=== PATIENT | male | born 1960 | race African-American/Black ===

== ENCOUNTER 2022-07-16 05:04 | Day surgery (SDC) | payer BC, OTHER ==
[2022-06-30 18:33] VITALS: BMI 26.4
[2022-07-16] MEDS ORDERED: MIDAZOLAM HCL 2 MG/2 ML SINGLE DOSE VIAL ONE (09:02)
[2022-07-16] MEDS ORDERED: DEXAMETHASONE SOD PHOSPHATE 4 MG/1 ML VIAL ONE (09:02)
[2022-07-16] MEDS ORDERED: ONDANSETRON 4 MG/2 ML VIAL ONE (09:02)
[2022-07-16] MEDS ORDERED: PROPOFOL 20 ML ONE (09:02)
[2022-07-16] MEDS ORDERED: BUPIVACAINE HCL/PF 0.25% (2.5MG/ML) 10 ML VIAL ONE (09:22)
[2022-07-16] MEDS ORDERED: LIDOCAINE 1%/EPI 1:100000 (20 ML MULTI DOSE VIAL) ONE (09:22)
[2022-07-16] MEDS ORDERED: LIDOCAINE 1%/EPI 1:100000 (20 ML MULTI DOSE VIAL) INF ONE (09:52)
[2022-07-16] MEDS ORDERED: BUPIVACAINE HCL/PF 0.25% (2.5MG/ML) 10 ML VIAL IJ ONE (09:52)
[2022-07-16 11:32] VITALS: RESP 18
[2022-07-16] MEDS ORDERED: oxyCODONE HCL 5 MG TABLET PO PRN (11:40)
[2022-07-16] MEDS ORDERED: ONDANSETRON 4 MG/2 ML VIAL IVPUSH PRN (11:40)
[2022-07-16] MEDS ORDERED: LACTATED RINGERS SOLUTION 1,000 ML IV SCH (11:45)
[2022-07-16 16:21] VITALS: BP 138/84; PULSE 60; TEMP 97.6
== END 2022-07-16 12:30 | disposition home or self-care (01) ==
LOC: JASU-SURG 05:04
PROVIDERS: ATTEND Orthopaedic Surgery
PROC: 0SBC4ZZ Excision of Right Knee Joint, Percutaneous Endoscopic Approach (ICD-10-PCS; principal; 2022-07-16 08:45)
DX: M23.91 Unspecified internal derangement of right knee (principal); S83.241A Other tear of medial meniscus, current injury, right knee, initial encounter; X58.XXXA Exposure to other specified factors, initial encounter; Y93.9 Activity, unspecified; Y92.89 Other specified places as the place of occurrence of the external cause; Y99.9 Unspecified external cause status
CPT/HCPCS: 94760

== ENCOUNTER 2022-09-17 04:18 | Day surgery (SDC) | payer OTHER ==
[2022-09-15 09:30] VITALS: BMI 26.4
[2022-09-17] MEDS ORDERED: BUPIVACAINE HCL/PF 0.5% (5MG/ML) 10 ML VIAL ONE (07:23)
[2022-09-17] MEDS ORDERED: LIDOCAINE HCL/PF 2% SDV 5ML VIAL ONE (09:05)
[2022-09-17] MEDS ORDERED: DEXAMETHASONE SOD PHOSPHATE 4 MG/1 ML VIAL ONE (09:05)
[2022-09-17] MEDS ORDERED: PROPOFOL 20 ML ONE (09:05)
[2022-09-17] MEDS ORDERED: ONDANSETRON 4 MG/2 ML VIAL ONE (09:05)
[2022-09-17] MEDS ORDERED: MIDAZOLAM HCL 2 MG/2 ML SINGLE DOSE VIAL ONE (09:05)
[2022-09-17] MEDS ORDERED: oxyCODONE HCL 5 MG TABLET PO PRN (09:07)
[2022-09-17] MEDS ORDERED: ONDANSETRON 4 MG/2 ML VIAL IVPUSH PRN (09:07)
[2022-09-17] MEDS ORDERED: LACTATED RINGERS SOLUTION 1,000 ML IV SCH (09:15)
[2022-09-17] MEDS ORDERED: KETOROLAC TROMETHAMINE 30 MG/1 ML VIAL ONE (09:46)
[2022-09-17 11:36] VITALS: RESP 18
[2022-09-17 13:19] VITALS: BP 126/91; PULSE 72; TEMP 97.4
== END 2022-09-17 12:30 | disposition home or self-care (01) ==
LOC: JASU-SURG 04:18
PROVIDERS: ATTEND Orthopaedic Surgery
PROC: 0SBD4ZZ Excision of Left Knee Joint, Percutaneous Endoscopic Approach (ICD-10-PCS; principal; 2022-09-17 08:45)
DX: M23.8X2 Other internal derangements of left knee (principal)
CPT/HCPCS: 94760

== ENCOUNTER 2022-12-24 04:27 | Day surgery (SDC) | payer OTHER ==
[2022-12-19 14:45] VITALS: BMI 26.1
[2022-12-24] MEDS ORDERED: DEXAMETHASONE SOD PHOSPHATE 10 MG/1 ML VIAL ONE (12:07)
[2022-12-24] MEDS ORDERED: BUPIVACAINE HCL/PF 0.5% (5MG/ML) 10 ML VIAL ONE (12:07)
[2022-12-24] MEDS ORDERED: MIDAZOLAM HCL 2 MG/2 ML SINGLE DOSE VIAL ONE (12:09)
[2022-12-24] MEDS ORDERED: ceFAZolin SODIUM 1 GM VIAL IVPB ONE (12:55)
[2022-12-24] MEDS ORDERED: PROMETHAZINE HCL 25 MG/1 ML VIAL IVPB PRN (13:41)
[2022-12-24] MEDS ORDERED: ONDANSETRON 4 MG/2 ML VIAL IVPUSH PRN (13:41)
[2022-12-24 16:04] VITALS: RESP 16
[2022-12-24 16:56] VITALS: BP 120/80; PULSE 75; TEMP 97.3
== END 2022-12-24 17:30 | disposition home or self-care (01) ==
LOC: JASU-SURG 04:27
PROVIDERS: ATTEND Orthopaedic Surgery
PROC: 0LB14ZZ Excision of Right Shoulder Tendon, Percutaneous Endoscopic Approach (ICD-10-PCS; principal; 2022-12-24 11:00)
PROC: 0PB94ZZ Excision of Right Clavicle, Percutaneous Endoscopic Approach (ICD-10-PCS; 2022-12-24 11:00)
DX: M75.101 Unspecified rotator cuff tear or rupture of right shoulder, not specified as traumatic (principal)
CPT/HCPCS: 94760; C1713; J1100

== ENCOUNTER 2023-02-24 19:01 | Emergency (ER) | payer OTHER ==
[2023-02-24 19:12] VITALS: BP 142/93; PULSE 86; RESP 18; TEMP 97.2; BMI 27.1
[2023-02-24] MEDS ORDERED: IBUPROFEN 400 MG TABLET (FP) PO PRN (19:58)
[2023-02-24] MEDS ORDERED: LIDOCAINE 5% TOPICAL PATCH TP ONE (19:58)
[2023-02-24] MEDS ORDERED: LIDOCAINE 5% TOPICAL PATCH ONE (20:22)
[2023-02-24] MEDS ORDERED: IBUPROFEN 400 MG TABLET (FP) PO ONE (20:23)
== END 2023-02-24 20:43 | disposition home or self-care (01) ==
LOC: JER 19:01
DX: M25.511 Pain in right shoulder (principal); M25.40 Effusion, unspecified joint; V43.52XA Car driver injured in collision with other type car in traffic accident, initial encounter
CPT/HCPCS: 99283-25